=== PATIENT | female | born 1995 | race Caucasian/White ===

== ENCOUNTER 2017-12-22 20:18 | Observation (INO) | payer OTHER, SELFPAY ==
[2017-12-22 20:42] VITALS: BP 119/77; PULSE 120; RESP 14; TEMP 37.2; O2SAT 88; BMI 30.1
--- NOTE | 2017-12-22 20:50 | XR_ITS ---
XR chest 2V Ordering Physician: Drew Villegas MD Patient Age: 22 years: Female HISTORY: ITS.REASON: SOA , AND COUGH TECHNIQUE: PA and lateral chest COMPARISON :Previous 2 view chest 04/27/2014. & December 08, 2016 CXR& August [address] CT chest from July 2016 FINDINGS Heart is normal in size Bilateral hilar enlargement again seen similar to previous study.. Previous CTA of chest July 2016 which show prominent pulmonary arteries, suggestive of underlying pulmonary hypertension. Generous hilar regions have been present on multiple prior chest films including December 2016 and even studies dating back to 2010. However on today's study there is slight additional fullness of the right infrahilar area. This may merely due to the orientation and angle of the generous pulmonary artery on the AP image; as this region shows no appreciable change on the today's lateral film.... Nonetheless low threshold & consideration for a follow-up CTA or CT chest with contrast warranted in this patient , particularly if symptoms should persist or progress.. Again suspect given the prominence of pulmonary arteries are is likely underlying pulmonary hypertension on prior CT there appears to be relatively enlarged right ventricle & right atria compared to the left heart.- Echocardiogram may be of benefit if has not been performed to confirm this impression pulmonary valve and outflow tract Lung [place] appear stable with No focal pneumonia evident. No pneumothorax. No pleural effusion. Chest wall and T-spine stable and unremarkable. IMPRESSION: Prominent tank bilaterally again seen.' Right infrahilar region appears very slightly more prominent on today's study than prior studies, but this could merely be projectional-as this region appears stable on the lateral view. However low threshold CTA chest or CT chest with contrast for close follow-up of her findings warranted in this patient with enlarged prominent tank.. (Given the generous caliber pulmonary arteries noted on previous CTA, question & suspect potential pulmonary hypertension. Previous CT suggested generous right heart. Has the patient undergone workup for such. Suggest echocardiogram if one has not been performed as part of this workup.)
--- NOTE | 2017-12-22 21:00 | HMH.EDGENADL ---
ED Disposition Clinical Impression: Hypoxia Reactive airway disease Qualifiers: Asthma severity: moderate Asthma persistence: persistent Asthma complication type: with acute exacerbation Qualified Code(s): J45.41 - Moderate persistent asthma with (acute) exacerbation Disposition: Admitted as Observation Condition on Discharge: Fair Time of Disposition: 22:45 - Critical Care Critical Care Time: No Attestation: On 12/22/17, the high probability of a clinically significant, sudden or life threatening deterioration of the following system(s) required my full and direct attention, intervention and personal management. The time I documented below is in addition to time spent performing reported procedures but includes the following listed in this critical care notation. Medical Decision Making - Medical Records Medical records reviewed: Yes: I reviewed the patient's medical records. Vital Signs: 12/22/17 20:42 12/22/17 21:15 12/22/17 22:24 Temperature 99 F 101.6 F H Temperature Source Oral Oral Pulse Rate 87 116 H Pulse Rate [Right Brachial] 120 H Respiratory Rate 14 24 Blood Pressure 108/61 Blood Pressure [Right Arm] 119/77 Blood Pressure Mean [Right Arm] 91 Blood Pressure Source Automatic Cuff Blood Pressure Source [Right Arm] Automatic Cuff Blood Pressure Position Sitting Blood Pressure Position [Right Arm] Supine 02 Sat by Pulse Oximetry 88 L Oxygen Delivery Method Room Air Nasal Cannula Oxygen Flow Rate (LPM) 2 - Lab Data Lab results reviewed: Yes: I reviewed the patient's lab results. Lab Results 12/22/17 20:55: WBC 10.0, RBC 5.83 H, Hgb 14.1, Hct 46.9, MCV 80.4 L, MCH 24.2 L, MCHC 30.0 L, RDW 16.6, Plt Count 144, MPV 13.4 H, Neut % (Auto) 65.0, Lymph % (Auto) 25.9, Howell % (Auto) 7.7, Eos % (Auto) 0.5, Baso % (Auto) 0.9, Neut # (Auto) 6.5, Lymph # (Auto) 2.6, Howell # (Auto) 0.8, Eos # (Auto) 0.1, Baso # (Auto) 0.1 12/22/17 20:55: Sodium 135 L, Potassium 3.7, Chloride 100, Carbon Dioxide 27, Anion Gap 11.7, BUN 9, Creatinine 1.08 H, Estimated Creat Clear 117, Estimated GFR 64, Est GFR ( Amer) 77, Glucose 76, Calcium 8.8, Total Bilirubin 0.5, AST 21, ALT 23, Alkaline Phosphatase 97, Total Protein 7.3, Albumin 3.7, Globulin 3.6 H, Albumin/Globulin Ratio 1.0 L 12/22/17 20:55: Lactic Acid 1.5 Result diagrams: 12/22/17 20:55 12/22/17 20:55 Orders (Tests/Meds): ED MEDICATIONS Generic Name Dose Route Start Last Admin Trade Name Jeramy PRN Reason Stop Dose Admin Hydrocortisone Sodium Succinate 60 mg 12/23/17 09:00 Solu-Cortef 100mg Vial IV 01/22/18 08:59 BID ESTEBAN Sodium Chloride 1,000 mls @ 75 mls/hr 12/22/17 22:15 12/22/17 23:32 Sod Chloride 0.9% 1000ml Bag IV 01/21/18 22:14 75 mls/hr .[id number] ESTEBAN Administration Levalbuterol HCl 1.25 mg 12/23/17 06:00 Xopenex 1.25mg/3ml [facility] 01/22/18 05:59 QIDRT ESTEBAN Non-Formulary Medication 60 mg 12/23/17 09:00 Sildenafil PO 01/22/18 08:59 DAILY ESTEBAN Sodium Chloride 10 ml 12/22/17 22:14 Saline Flush 10ml Syringe IV 01/21/18 22:10 NEEDED PRN Maintain IV Site Discontinued Medications Generic Name Dose Route Start Last Admin Trade Name Jeramy PRN Reason Stop Dose Admin Albuterol/Ipratropium 3 ml 12/22/17 20:53 12/22/17 21:14 Duoneb 3ml [facility] 12/22/17 20:54 3 ml ONCE ONE Administration Hydrocortisone Sodium Succinate 60 mg 12/23/17 09:00 Solu-Cortef 100mg Vial IV 01/22/18 08:59 BID ESTEABN Sodium Chloride 1,000 mls @ 999 mls/hr 12/22/17 21:00 12/22/17 20:57 Sod Chloride 0.9% 1000ml Bag IV 12/22/17 22:00 999 mls/hr .[id number] ESTEBAN Administration Sodium Chloride 1,000 mls @ 75 mls/hr 12/22/17 22:15 Sod Chloride 0.9% 1000ml Bag IV 01/21/18 22:14 .[id number] ESTEBAN Levalbuterol HCl 1.25 mg 12/23/17 06:00 Xopenex 1.25mg/3ml Neb [facility] 01/22/18 05:59 QIDRT ESTEBAN Methylprednisolone Sodium Succinate 125 mg 0
[2017-12-22 21:15] VITALS: PULSE 87
[2017-12-22 21:37] LABS: Basophils # 0.1 K/mm3 (0-0.2); Basophils % 0.9 % (0.1-2.0); Eosinophils # 0.1 K/mm3 (0.0-0.4); Eosinophils % 0.5 % (0.1-12.0); Hematocrit 46.9 % (37.0-47.0); Hemoglobin 14.1 g/dL (12.2-16.2); Lymphocytes # 2.6 K/mm3 (0.7-4.5); Lymphocytes % 25.9 K/mm3 (10-50); Mean Corpuscular Hemoglobin 24.2 pg (27.0-31.2); Mean Corpuscular Volume 80.4 fl (81-99); Mean Platelet Volume 13.4 fl (7.4-10.4); Monocytes # 0.8 K/mm3 (0.1-1.0); Monocytes % 7.7 % (1.7-9.3); Neutrophils # 6.5 K/mm3 (1.8-7.8); Platelet Count 144 K/mm3 (142-424); Red Blood Count 5.83 M/mm3 (4.20-5.40); Red Cell Distribution Width 16.6 % (11.5-17.5)
[2017-12-22 21:39] LABS: Lactic Acid 1.5 mmol/L (0.4-2.0)
[2017-12-22 21:43] LABS: Alanine Aminotransferase 23 U/L (12-78); Albumin Level 3.7 gm/dL (3.4-5.0); Alkaline Phosphatase 97 U/L (46-116); Anion Gap 11.7 mEq/L (5-15); Aspartate Amino Transferase 21 U/L (15-37); Bilirubin,Total 0.5 mg/dL (0.2-1.0); Blood Urea Nitrogen 9 mg/dL (7-18); Calcium 8.8 mg/dL (8.5-10.1); Carbon Dioxide 27 mmol/L (21.0-32.0); Chloride 100 mmol/L (98-107); Creatinine Clearance Estimated 117 mL/min (0-300); Creatinine,Serum 1.08 mg/dL (0.55-1.02); Estimated Glomerular Filt Rate 64 ml/min (>60); GFR (African American) 77 ML/MIN (>60); Globulin 3.6 gm/dl (1.3-3.2); Glucose 76 mg/dL (74-106); Potassium 3.7 mmoL/L (3.5-5.1); Sodium 135 mmol/L (136-145); Total Protein,Serum 7.3 gm/dL (6.4-8.2)
[2017-12-22 22:24] VITALS: BP 108/61; PULSE 116; RESP 24; TEMP 38.7; O2SAT 90
[2017-12-22 22:30] VITALS: BP 107/65; PULSE 114; RESP 24; TEMP 37.4; O2SAT 93; BMI 26.4
[2017-12-22 23:23] VITALS: RESP 24; O2SAT 93
--- NOTE | 2017-12-23 04:08 | PC.NURSE ---
pt has slept brief intervals since admission, pt has had a cough that keeps her up, pt is SOA at rest, pt is tachypneic with labored respirations, pt frequently has to catch breath while talking, rhonchi noted upon auscultation, pt maintaining O2 sats above 90 on 2L NC, all other vital signs stable, bowel sounds active, no acute distress noted at this time, call light in reach, family at bedside, will continue to monitor.
[2017-12-23 04:24] VITALS: BP 113/77; PULSE 106; RESP 26; TEMP 36.7; O2SAT 91
[2017-12-23 05:44] VITALS: PULSE 112; PULSE 116; O2SAT 82
--- NOTE | 2017-12-23 05:58 | PC.NURSE ---
LATE ENTRY- PT DID NOT WANT A BATH. NURSE NOTIFIED
--- NOTE | 2017-12-23 07:06 | HMH.PHAVTE ---
[facility] Pharmacy VTE Monitoring - Patient Demographics Admission date: 12/22/17 Report Date: 12/23/17 Time: 07:06 Allergies/Adverse Reactions: Patient Allergies adhesive [ADHESIVE] Allergy (Severe, Verified 12/22/17 20:50) S-BLISTERING WELTS Height: 1.75 m Weight: 80.995 kg Patient Problems: Current Active Problems Reactive airway disease (Acute) Hypoxia (Acute) - VTE Risk Labs: VTE Related Lab Results Hgb 14.1 g/dL (12.2-16.2) 12/22/17 20:55 Hct 46.9 % (37.0-47.0) 12/22/17 20:55 Plt Count 144 K/mm3 (142-424) 12/22/17 20:55 BUN 9 mg/dL (7-18) 12/22/17 20:55 Creatinine 1.08 mg/dL (0.55-1.02) H 12/22/17 20:55 Estimated Creat Clear 117 mL/min (0-300) 12/22/17 20:55 Was VTE Risk Assessment Performed: Yes VTE Score: 3 VTE Risk Level: Low Risk - Prophylaxis VTE Prophylaxis Ordered?: Yes Types of VTE Prophylaxis: TEDS Knee High Location of Applied Device: Bilateral Lower Extremeties - VTE Diagnosis Confirmed Treatment or plan recommended: Continue Current Treatment
--- NOTE | 2017-12-23 07:11 | PC.NURSE ---
Report given to Pia Koroma RN
--- NOTE | 2017-12-23 07:22 | PC.NURSE ---
REPORT GIVEN TO Sultana RAYGOZA W/C
[2017-12-23 07:38] VITALS: BP 111/69; PULSE 93; RESP 18; TEMP 36.7; O2SAT 90
--- NOTE | 2017-12-23 07:40 | PC.NURSE ---
0720 - received bedside report from Jeanine Ochoa RN
[2017-12-23 08:00] VITALS: O2SAT 90
--- NOTE | 2017-12-23 09:11 | HMH.HP ---
*Admission Date: 12/22/17 *Chief complaint: sob *History of present illness: this pt has known pul htn and has increased sob over the last few days with reported uri sx and has been noncompliant with meds and no fever or hemoptysis [facility] History I have reviewed the patient's past medical history: Yes Medical History: Denies:: Cancer, Diabetes Mellitus Type 1, Diabetes Mellitus Type 2, MRSA Other Medical History: Reports: Other (Pulmonary hypertension) Other Surgeries: Yes: Amputation: No Fractures: No - *Social History Educational Level: Attended High School Smoking Status: Current every day smoker Tobacco Type: cigarettes # Packs/Day (cigarettes): 1 Alcohol Intake: never Alcohol Intake Frequency:: a few times a month Substance Use Type: marijuana Last Used Substance: hours (ago) Occupational Status: unemployed [facility]: [facility] Household Members: family, children - Psychiatric History Expresses thoughts of harming self/others: None Suicide Plan Description: No Plan *Family Hx:: Heart Attack, Hypertension, Thyroid Disorder Review of Systems - Review of Systems Review of systems:: pertinent systems reviewed and negative unless documented below - Constitutional Denies chills, Denies fever(s) - Eyes Denies change in vision - ENT Denies sinus pressure - *Cardiovascular Reports shortness of breath, Denies chest pain at rest - *Respiratory Reports cough, Reports shortness of breath, Denies coughing up blood - *Gastrointestinal Denies abdominal pain - *Musculoskeletal Denies joint pain, Denies joint swelling - Integumentary/Breasts Denies rash - Psychiatric Denies depression Meds Home Medications Medication Instructions Recorded Confirmed Type ALPRAZolam [Xanax 0.5mg tab] 0.5 mg PO TID 12/22/17 12/22/17 History Ambrisentan [Letairis] 5 mg PO DAILY 12/22/17 12/22/17 History Gabapentin [Gralise 600mg ER Tab] 600 mg PO TID 12/22/17 12/22/17 History Sildenafil Citrate [Sildenafil] 20 mg PO TID 12/22/17 12/22/17 History Escitalopram Oxalate [Lexapro] 20 mg PO DAILY 12/23/17 12/23/17 History Allergies Allergy/AdvReac Type Severity Reaction Status Date / Time adhesive [ADHESIVE] Allergy Severe S-BLISTERING Verified 12/22/17 20:50 WELTS Exam Vital signs and Labs for Last 24 Hours: Temp Pulse Resp BP Pulse Ox 98.1 F 93 H 18 111/69 90 L 12/23/17 07:38 12/23/17 07:38 12/23/17 07:38 12/23/17 07:38 12/23/17 07:38 I & O for Last 24 hours: Intake & Output 12/20/17 12/21/17 12/22/17 12/23/17 11:59 11:59 11:59 11:59 Intake Total 720 / 720 Output Total 900 / 900 Balance -180 / -180 Weight 178 lb 9 oz - Constitutional no acute distress - *Routine HEENT Exam Head: Present: normocephalic Eye: Present: EOMI, PERRL ENT: Present: mucous membranes dry - *Routine Neck Exam Present: supple - *Routine Respiratory Exam Absent: respiratory distress - *Routine Cardiovascular Exam Present: murmur - *Routine Abdominal Exam Present: soft. Absent: distended, rebound - *Routine Extremities Exam Present: cyanosis - *Routine Skin Exam Present: intact - *Routine Neurological Exam Present: alert, oriented X3, CN II-XII intact - Routine Psychiatric Exam Present: normal affect Assessment and Plan (1) Pulmonary HTN Current visit: Yes Status: Acute Category: Medical Code(s): I27.20 - Pulmonary hypertension, unspecified
--- NOTE | 2017-12-23 09:14 | P.HP_ITS ---
*Admission Date: 12/22/17 *Chief complaint: sob *History of present illness: this pt has known pul htn and has increased sob over the last few days with reported uri sx and has been noncompliant with meds and no fever or hemoptysis [facility] History I have reviewed the patient's past medical history: Yes Medical History: Denies:: Cancer, Diabetes Mellitus Type 1, Diabetes Mellitus Type 2, MRSA Other Medical History: Reports: Other (Pulmonary hypertension) Other Surgeries: Yes: Amputation: No Fractures: No - *Social History Educational Level: Attended High School Smoking Status: Current every day smoker Tobacco Type: cigarettes # Packs/Day (cigarettes): 1 Alcohol Intake: never Alcohol Intake Frequency:: a few times a month Substance Use Type: marijuana Last Used Substance: hours (ago) Occupational Status: unemployed Housing: [facility] Household Members: family, children - Psychiatric History Expresses thoughts of harming self/others: None Suicide Plan Description: No Plan *Family Hx:: Heart Attack, Hypertension, Thyroid Disorder Review of Systems - Review of Systems Review of systems:: pertinent systems reviewed and negative unless documented below - Constitutional Denies chills, Denies fever(s) - Eyes Denies change in vision - ENT Denies sinus pressure - *Cardiovascular Reports shortness of breath, Denies chest pain at rest - *Respiratory Reports cough, Reports shortness of breath, Denies coughing up blood - *Gastrointestinal Denies abdominal pain - *Musculoskeletal Denies joint pain, Denies joint swelling - Integumentary/Breasts Denies rash - Psychiatric Denies depression Meds Home Medications Medication Instructions Recorded Confirmed Type ALPRAZolam [Xanax 0.5mg tab] 0.5 mg PO TID 12/22/17 12/22/17 History Ambrisentan [Letairis] 5 mg PO DAILY 12/22/17 12/22/17 History Gabapentin [Gralise 600mg ER Tab] 600 mg PO TID 12/22/17 12/22/17 History Sildenafil Citrate [Sildenafil] 20 mg PO TID 12/22/17 12/22/17 History Escitalopram Oxalate [Lexapro] 20 mg PO DAILY 12/23/17 12/23/17 History Allergies Allergy/AdvReac Type Severity Reaction Status Date / Time adhesive [ADHESIVE] Allergy Severe S-BLISTERING Verified 12/22/17 20:50 WELTS Exam Vital signs and Labs for Last 24 Hours: Temp Pulse Resp BP Pulse Ox 98.1 F 93 H 18 111/69 90 L 12/23/17 07:38 12/23/17 07:38 12/23/17 07:38 12/23/17 07:38 12/23/17 07:38 I & O for Last 24 hours: Intake & Output 12/20/17 12/21/17 12/22/17 12/23/17 11:59 11:59 11:59 11:59 Intake Total 720 / 720 Output Total 900 / 900 Balance -180 / -180 Weight 178 lb 9 oz - Constitutional no acute distress - *Routine HEENT Exam Head: Present: normocephalic Eye: Present: EOMI, PERRL ENT: Present: mucous membranes dry - *Routine Neck Exam Present: supple - *Routine Respiratory Exam Absent: respiratory distress - *Routine Cardiovascular Exam Present: murmur - *Routine Abdominal Exam Present: soft. Absent: distended, rebound - *Routine Extremities Exam Present: cyanosis - *Routine Skin Exam Present: intact - *Routine Neurological Exam Present: alert, oriented X3, CN II-XII intact - Routi
--- NOTE | 2017-12-23 09:14 | CA_ITS ---
PROCEDURE: 2-D M-mode and color Doppler study INDICATIONS FOR THE TEST: Chest pain COPD Heart Murmur Tobacco SmokingX Palpitations Fatigue Syncope Edema Hypertension Diabetes Mellitus Rheumatic Fever SOBXDOEXObesity Hyperlipidemia Family History HD Additional History KNOWN PULMONARY HTN PATIENT INFORMATION HEIGHT: 69 WEIGHT:178 GENDER: Female B/P: 2-D/M-MODE INTERPRETATION: 2-D MEASUREMENTS OBSERVED VALUES IN CMS Right Ventricular Dimension (RVDd) 4.6 Interventricular Septum (Thickness)(IVsd) 1.3 Left Ventricular Internal Dimensions(LVIDd) 3.1 Left Ventricular Posterior Wall (Thickness)(LVPWd) 1.2 Aortic Root 3.0 Aortic Cusp Separation 2.3 Left Atrial Dimensions (LAD) 3.2 2D 1. Left atrium is normal size, left ventricle is normal size, there is mild concentric left ventricular hypertrophy, visually estimated ejection fraction 55% with no obvious regional wall motion abnormality, there is flattening of the interventricular septum during systole end-diastolic consistent with pressure and volume overload on right ventricle. 2. The right atrium is moderately, right ventricle is markedly enlarged, there is moderate to severe reduction in right ventricular systolic function. 3. The aortic valve is minimally thickened and fibrosed. 4. The mitral and tricuspid valve leaflets are minimally thickened. 5. The pulmonic valve is poorly visualized. 6. No significant pericardial effusion noted. DOPPLER INTERROGATION: Doppler interrogation of the aortic, mitral and tricuspid valvular presence of mild mitral and severe tricuspid regurgitation, calculated right ventricular systolic pressure is 106 mmHg consistent with severe pulmonary hypertension. Inferior vena cava is dilated without significant collapse. CONCLUSION: 1. Normal left ventricular size, preserved left ventricular systolic function, visually estimated ejection fraction 55% with no obvious regional wall motion abnormality, there is flattening of the interventricular septum during systole diastolic consistent with pressure and volume overload and right ventricle. 2. Mild mitral and severe tricuspid regurgitation, calculated right ventricular systolic pressure is 106 mmHg consistent with severe pulmonary hypertension. Inferior vena cava is dilated without significant static collapse. 3. No significant pericardial effusion noted.
[2017-12-23 09:42] VITALS: PULSE 90; PULSE 91
[2017-12-23 13:52] VITALS: PULSE 78; PULSE 79
--- NOTE | 2017-12-23 14:33 | PC.NURSE ---
Interdisciplinary team coordination with dietary, nursing, pharmacy, and case management. Discussed pt care and discharge plans.
--- NOTE | 2017-12-23 15:09 | PC.NURSE ---
Pt questioned why she was in the hospital. This nurse explained to pt that we are monitoring her respiratory status and that her MD has requested cardiology to see her to assist with management of her pulmonary HTN. Pt states that she can do this at home and is requesting to leave hospital. Call placed to Dr Black and spoke with iBng and informed her of the above. Bing stated that she will inform Dr Black.
--- NOTE | 2017-12-23 15:24 | PC.NURSE ---
Patient signed Against Medical Advice Release and Instruction Form. IV removed from (R) AC. Pt has removed oxygen. Home meds returned to pt. Pt is waiting on ride.
--- NOTE | 2017-12-23 15:33 | PC.NURSE ---
Pt ambulated off floor independently in NAD.
--- NOTE | 2017-12-27 08:19 | HMH.DCSUM ---
General - General Admission date: 12/22/17 Discharge date: 12/22/17 HPI HPI: this pt has known pul htn and has increased sob over the last few days with reported uri sx and has been noncompliant with meds and no fever or hemoptysis Objective Vital signs: Temp Pulse Resp BP Pulse Ox 98.1 F 79 18 111/69 90 L 12/23/17 07:38 12/23/17 13:52 12/23/17 07:38 12/23/17 07:38 12/23/17 08:00 Hospital Course Hospital Course: pt signed out ama before being seen Meds Home Medications Medication Instructions Recorded Confirmed Type ALPRAZolam [Xanax 0.5mg tab] 0.5 mg PO TID 12/22/17 12/22/17 History Ambrisentan [Letairis] 5 mg PO DAILY 12/22/17 12/22/17 History Gabapentin [Gralise 600mg ER Tab] 600 mg PO TID 12/22/17 12/22/17 History Sildenafil Citrate [Sildenafil] 20 mg PO TID 12/22/17 12/22/17 History Albuterol Sulfate [Albuterol HFA 2 puffs INHALATION Q4-6H 12/23/17 12/23/17 History Inhaler] Escitalopram Oxalate [Lexapro] 20 mg PO DAILY 12/23/17 12/23/17 History Allergies Allergy/AdvReac Type Severity Reaction Status Date / Time adhesive [ADHESIVE] Allergy Severe S-BLISTERING Verified 12/22/17 20:50 [id number] Discharge Plan - Patient Discharge Instructions ACTIVITY: Continue current activity DIET: continue same diet - Follow up Plan Disposition: Left Against Medical Advice Home Medications: Home Medications Medication Instructions Recorded Confirmed Type ALPRAZolam [Xanax 0.5mg tab] 0.5 mg PO TID 12/22/17 12/22/17 History Ambrisentan [Letairis] 5 mg PO DAILY 12/22/17 12/22/17 History Gabapentin [Gralise 600mg ER Tab] 600 mg PO TID 12/22/17 12/22/17 History Sildenafil Citrate [Sildenafil] 20 mg PO TID 12/22/17 12/22/17 History Albuterol Sulfate [Albuterol HFA 2 puffs INHALATION Q4-6H 12/23/17 12/23/17 History Inhaler] Escitalopram Oxalate [Lexapro] 20 mg PO DAILY 12/23/17 12/23/17 History Prescriptions/Medication Reconciliation: No Action Gabapentin [Gralise 600mg ER Tab] 600 mg PO TID ALPRAZolam [Xanax 0.5mg tab] 0.5 mg PO TID Ambrisentan [Letairis] 5 mg PO DAILY Sildenafil Citrate [Sildenafil] 20 mg PO TID Escitalopram Oxalate [Lexapro] 20 mg PO DAILY Albuterol Sulfate [Albuterol HFA Inhaler] 2 puffs INHALATION Q4-6H
== END 2017-12-23 15:34 | disposition left against medical advice (07) ==
LOC: UTC 20:21 → ER 20:40 → 2ND 22:58
PROVIDERS: Admitting Provider Internal Medicine Adolescent Medicine; Emergency Provider Emergency Medicine; Family Provider Emergency Medicine; PCP Emergency Medicine; Visit Provider Emergency Medicine
DX: J45.41 Moderate persistent asthma with (acute) exacerbation (principal); I27.20 Pulmonary hypertension, unspecified; Z72.0 Tobacco use; Z79.899 Other long term (current) drug therapy
CPT/HCPCS: 71046; 80053; 83605; 85025; 87040; 93306; 94640; 94761; 99284; G0378

== ENCOUNTER 2017-12-30 10:57 | Emergency (ER) | payer OTHER, SELFPAY ==
[2017-12-30 11:03] VITALS: BP 148/79; PULSE 104; RESP 24; TEMP 36.6; O2SAT 84; BMI 26.6
--- NOTE | 2017-12-30 11:10 | XR_ITS ---
XR chest 2V Ordering Physician: Lalito Black MD Patient Age: 22 years: Female HISTORY: ITS.REASON: short of breath TECHNIQUE: PA and lateral chest COMPARISON :12/22/2017 FINDINGS Right chest Suggestion of subtle patchy area of infiltrate towards the right lower lobe. Specifically note area of slight increased density projected over the anterior right sixth rib on today's frontal view; with likely subtle wispy associated minimal infiltrate right infrahilar region towards right lower lobe also noted. Left chest. Upper normal markings left infrahilar region question some mild central airway inflammatory changes . Again prominent hilar regions again noted reflecting prominent pulmonary arteries with prior diagnosis of pulmonary hypertension as suggested on CTA chest 2016. . The heart, tank, and mediastinal structures appear stable. . No pleural effusions no pneumothorax chest wall T-spine unremarkable ----- IMPRESSION: 1. Suggestion of minimal patchy infiltrate at RLL superimposed upon chronic changes 2. Prominent hilar regions most likely reflecting underlying pulmonary hypertension
--- NOTE | 2017-12-30 11:34 | [facility].EDSOB ---
ED Disposition Clinical Impression: Pulmonary HTN, Bronchitis Disposition: Xfer Short-Term Hosp Condition on Discharge: Good - Critical Care Critical Care Time: No Attestation: On 12/30/17, the high probability of a clinically significant, sudden or life threatening deterioration of the following system(s) required my full and direct attention, intervention and personal management. The time I documented below is in addition to time spent performing reported procedures but includes the following listed in this critical care notation. Medical Decision Making - Medical Records Medical records reviewed: Yes: I reviewed the patient's medical records. Vital Signs: 12/30/17 11:03 12/30/17 12:21 12/30/17 13:20 Temperature 97.9 F Temperature Source Oral Pulse Rate [Right Radial] 104 H 111 H 98 H Respiratory Rate 24 24 22 Blood Pressure [Right Arm] 148/79 112/61 Blood Pressure Mean [Right Arm] 102 78 Blood Pressure Source [Right Arm] Automatic Cuff Blood Pressure Position [Right Arm] Sitting Sitting 02 Sat by Pulse Oximetry 84 L 70 L 91 L Oxygen Delivery Method Room Air Nasal Cannula Nasal Cannula Oxygen Flow Rate (LPM) 2 2 - Lab Data Lab Results 12/30/17 11:15: Influenza Type A Ag Negative, Influenza Type B Ag Negative 12/30/17 11:30: WBC 12.8 H, RBC 5.27, Hgb 12.9, Hct 41.6, MCV 79.1 L, MCH 24.5 L, MCHC 31.0 L, RDW 16.4, Plt Count 175, MPV 12.5 H, Neut % (Auto) 76.8, Lymph % (Auto) 17.3, Foard % (Auto) 4.7, Eos % (Auto) 0.8, Baso % (Auto) 0.4, Neut # (Auto) 9.8 H, Lymph # (Auto) 2.2, Foard # (Auto) 0.6, Eos # (Auto) 0.1, Baso # (Auto) 0.1 12/30/17 11:30: Sodium 142, Potassium 2.7 L*, Chloride 105, Carbon Dioxide 23, Anion Gap 16.7 H, BUN 7, Creatinine 0.80, Estimated Creat Clear 143, Estimated GFR 91, Est GFR ( Amer) 110, Glucose 98, Calcium 8.4 L, Total Bilirubin 0.7, AST 14 L, ALT 26, Alkaline Phosphatase 81, Total Protein 7.8, Albumin 3.0 L, Globulin 4.8 H, Albumin/Globulin Ratio 0.6 L 12/30/17 11:30: Urine HCG, Qual Negative 12/30/17 11:30: Lactic Acid 1.9 12/30/17 11:30: Urine Opiates Screen Negative, Ur Barbituates Screen Negative, Ur Phencyclidine Scrn Negative, Ur Amphetamines Screen Negative, U Methamphetamines Scrn Negative, U Benzodiazepines Scrn Negative, Urine Cocaine Screen Negative, U Marijuana (THC) Screen Positive H 12/30/17 11:30: Total Creatine Kinase 88, CK-MB (CK-2) < 0.5, CK-MB (CK-2) Rel Index 0.6, Troponin I < 0.02 Result diagrams: 12/30/17 11:30 12/30/17 11:30 Orders (Tests/Meds): ED MEDICATIONS Discontinued Medications Generic Name Dose Route Start Last Admin Trade Name Freq PRN Reason Stop Dose Admin Levalbuterol HCl 1.25 mg 12/30/17 12:46 12/30/17 12:47 Xopenex 1.25mg/3ml Neb IH 12/30/17 12:47 1.25 mg ONCE ONE Administration ORDERS Category Date Time Status Blood Culture Stat Micro 12/30/17 11:30 Received - Radiology Data #1 Image(s): Chest Image Reviewed: Yes I reviewed the patient's radiology image Preliminary Findings: Abnormal (sl changes rt base) - Physician Consults Physician Consulted: mclaughlin Reason -: Transfer to another facilty - [facility] Inquiry Pt receiving controlled substance: No Resp/SOB HPI - General Chief Complaint: Shortness of Breath/Dyspnea Stated Complaint: low oxygen [facility] office sent Time Seen by Provider: 12/30/17 11:34 Mode of Arrival: Ambulatory Source of Information: Patient, Medical Record Limitations: No Limitations Description of Symptoms (Recalled from ER Triage Doc. by RN): Patient has known pulmonary hyptertension and uses oxygen intermittently at home. She has had increased shortness of breath progressively over the last 3 weeks. THere has been flu in the household. She went to Dr. Black's office today and was sent to the ED for evaluation related to her oxygen level being low. - History of Present Illness pt with progressive sob with no fever and has known htn MD Complaint: shad
--- NOTE | 2017-12-30 11:45 | PC.NURSE ---
Report given to Jeanine Jamil RN
[2017-12-30 11:47] LABS: Urine Pregnancy, HCG Qual. Negative (Negative)
[2017-12-30 11:50] LABS: Basophils # 0.1 K/mm3 (0-0.2); Basophils % 0.4 % (0.1-2.0); Eosinophils # 0.1 K/mm3 (0.0-0.4); Eosinophils % 0.8 % (0.1-12.0); Hematocrit 41.6 % (37.0-47.0); Hemoglobin 12.9 g/dL (12.2-16.2); Lymphocytes # 2.2 K/mm3 (0.7-4.5); Lymphocytes % 17.3 K/mm3 (10-50); Mean Corpuscular Hemoglobin 24.5 pg (27.0-31.2); Mean Corpuscular Volume 79.1 fl (81-99); Mean Platelet Volume 12.5 fl (7.4-10.4); Monocytes # 0.6 K/mm3 (0.1-1.0); Monocytes % 4.7 % (1.7-9.3); Neutrophils # 9.8 K/mm3 (1.8-7.8); Neutrophils % 76.8 % (37.0-80.0); Platelet Count 175 K/mm3 (142-424); Red Blood Count 5.27 M/mm3 (4.20-5.40); Red Cell Distribution Width 16.4 % (11.5-17.5); White Blood Count 12.8 K/mm3 (4.8-10.8)
[2017-12-30 12:03] LABS: Alanine Aminotransferase 26 U/L (12-78); Albumin/Globulin Ratio 0.6 (1.1-1.8); Alkaline Phosphatase 81 U/L (46-116); Anion Gap 16.7 mEq/L (5-15); Aspartate Amino Transferase 14 U/L (15-37); Bilirubin,Total 0.7 mg/dL (0.2-1.0); Blood Urea Nitrogen 7 mg/dL (7-18); Calcium 8.4 mg/dL (8.5-10.1); Carbon Dioxide 23 mmol/L (21.0-32.0); Chloride 105 mmol/L (98-107); Creatinine Clearance Estimated 143 mL/min (0-300); Estimated Glomerular Filt Rate 91 ml/min (>60); GFR (African American) 110 ML/MIN (>60); Globulin 4.8 gm/dl (1.3-3.2); Glucose 98 mg/dL (74-106); Sodium 142 mmol/L (136-145); Total Protein,Serum 7.8 gm/dL (6.4-8.2)
[2017-12-30 12:05] LABS: Lactic Acid 1.9 mmol/L (0.4-2.0); Potassium 2.7 mmoL/L (3.5-5.1)
--- NOTE | 2017-12-30 12:05 | PC.NURSE ---
[email or web address] DAVEY IN LAB CRITICAL POTASSIUM 2.7.
[2017-12-30 12:12] LABS: Amphetamine/Metha Screen,Urine Negative ng/mL (<1000); Barbiturates Screen,Urine Negative ng/mL (<200); Benzodiazepines Screen,Urine Negative ng/mL (200); Cannabinoid Screen,Urine Positive ng/mL (<50); Cocaine Screen,Urine Negative ng/g (<300); Methadone Screen,Urine Negative ng/mL (<300); Opiate Screen,Urine Negative ng/mL (<300); Phencyclidine Screen,Urine Negative ng/mL (<25)
[2017-12-30 12:21] VITALS: PULSE 111; RESP 24; O2SAT 70
[2017-12-30 12:33] LABS: Creatine Kinase 88 U/L (26-192)
[2017-12-30 12:34] LABS: CKMB Relative Index 0.6 U/L (0-4.0); Creatine Kinase MB < 0.5 mg/ml (0.0-3.6); Troponin I < 0.02 ng/ml (0.00-0.06)
[2017-12-30 13:20] VITALS: BP 112/61; PULSE 98; RESP 22; O2SAT 91
--- NOTE | 2017-12-30 13:41 | PC.NURSE ---
SPEAKING TO DOCTOR RICKS FROM [facility] AT THIS TIME.
[2017-12-30 14:03] VITALS: BP 127/82; PULSE 101; RESP 22; TEMP 36.8; O2SAT 86
[2017-12-30 15:09] VITALS: BP 127/62; PULSE 74; RESP 22; TEMP 36.8; O2SAT 87
== END 2017-12-30 15:11 | disposition short-term general hospital (02) ==
PROVIDERS: Emergency Provider Emergency Medicine; Family Provider Emergency Medicine; PCP Emergency Medicine
DX: I27.20 Pulmonary hypertension, unspecified (principal); J40 Bronchitis, not specified as acute or chronic; E87.6 Hypokalemia; F12.10 Cannabis abuse, uncomplicated; F17.210 Nicotine dependence, cigarettes, uncomplicated; Z99.81 Dependence on supplemental oxygen; Z79.899 Other long term (current) drug therapy
CPT/HCPCS: 71046; 80053; 80305; 81025; 82550; 82553; 83605; 84484; 85025; 87040; 87275; 87276; 99284